=== PATIENT | male | born 1995 | race Caucasian/White ===

== ENCOUNTER 2025-05-20 00:47 | Emergency (ER) | payer SELFPAY ==
[2025-05-20] MEDS ORDERED: Sodium Chloride 0.9% 10 ML Syringe FLUSH PRN (01:48)
[2025-05-20] MEDS ORDERED: Sodium Chloride 0.9% 2.5 ML Syringe FLUSH PRN (01:48)
[2025-05-20 01:53] LABS: BASOPHILS ABSOLUTE AUTO 0.04 K/uL (0.00-0.20); BASOPHILS PERCENT AUTO 0.3 % (0.0-1.0); EOSINOPHILS ABSOLUTE AUTO 0.06 K/uL (0.00-0.45); EOSINOPHILS PERCENT AUTO 0.5 % (0.0-6.0); IMMATURE GRAN ABSOLUTE AUTO 0.03 K/uL (0.00-0.05); IMMATURE GRAN PERCENT AUTO 0.2 % (0.0-0.4); LYMPHOCYTES ABSOLUTE AUTO 2.09 K/uL (1.00-4.80); LYMPHOCYTES PERCENT AUTO 16.8 % (24.0-44.0); MEAN PLATELET VOLUME 12.2 fL (9.4-12.4); MONOCYTES ABSOLUTE AUTO 0.61 K/uL (0.00-0.80); MONOCYTES PERCENT AUTO 4.9 % (0.0-8.0); NEUTROPHILS ABSOLUTE AUTO 9.58 K/uL (1.80-7.70); NEUTROPHILS PERCENT AUTO 77.3 % (41.0-71.0); NRBC ABSOLUTE 0.00 K/uL (0.00-0.02); NRBC PERCENT 0.0 /100WBC (0.0-0.2); PLATELET COUNT,PLT 210 K/uL (150-400); RED BLOOD CELL COUNT 4.72 M/uL (4.52-5.90); WHITE BLOOD CELL COUNT,WBC 12.41 K/uL (3.9-11.3)
[2025-05-20] MEDS: Ondansetron 4 MG/2 ML SDV IVPUSH ONE (01:54)
[2025-05-20] MEDS: Ketorolac 30 MG/ML SDV IVPUSH ONE (01:54)
[2025-05-20 02:09] LABS: A/G RATIO 1.2 (0.9-1.6); ALANINE AMINOTRANSFERASE,ALT 20.0 IU/L (14-63); ASPARTATE AMNIOTRANSFERASE,AST 22.0 IU/L (15-37); BILIRUBIN TOTAL 0.6 mg/dL (0.2-1.0); BLOOD UREA NITROGEN,BUN 10.0 mg/dL (7.0-18.0); CARBON DIOXIDE,CO2 24.1 mmol/L (21.0-32.0); CHLORIDE,CL 103.0 mmol/L (98-107); CREATININE 1.3 mg/dL (0.8-1.3); EST CRCL DRUG DOSING (CG) 92.03 mL/min; GLUCOSE RANDOM 105.0 mg/dL (74-106); POTASSIUM,K 3.5 mmol/L (3.5-5.1); PROTEIN TOTAL,TP 7.1 g/dL (6.4-8.2); SODIUM,NA 140.0 mmol/L (136-148)
[2025-05-20 02:14] LABS: ESTIMATED GFR 76.0 mL/min (>60)
[2025-05-20 03:06] LABS: GLUCOSE,URINE NEGATIVE (NEGATIVE); OCCULT BLOOD,URINE LARGE (NEGATIVE)
[2025-05-20 03:25] LABS: APPEARANCE,URINE HAZY
[2025-05-20 03:26] LABS: EPITHELIAL CELLS,URINE RARE (NONE-FEW)
== END 2025-05-20 03:44 | disposition home or self-care (01) ==
LOC: MW.ED 00:47
DX: N13.2 Hydronephrosis with renal and ureteral calculous obstruction (principal); Z79.899 Other long term (current) drug therapy
CPT/HCPCS: 36415; 74176; 80053; 81001; 83690; 85025; 96361; 96374; 96375; 99284; J1885; J2405; J7030; 99283